=== PATIENT | female | born 2000 | race Caucasian/White ===

== ENCOUNTER 2020-05-18 16:46 | Emergency (ER) | payer OTHER ==
[~2020-05-18] VITALS: Ht 175 cm; Wt 113.0 kg
[2020-05-18] MEDS ORDERED: NF-VYVAN20 (17:17)
[2020-05-18] MEDS ORDERED: FLUO40CA (17:17)
--- NOTE | 2020-05-18 18:23 | Diagnostic Imaging Report ---
EXAMINATION: Chest 1 view HISTORY: cough COMPARISON: None available. FINDINGS: Heart size and pulmonary vasculature are normal. The lungs are clear without consolidation, pleural effusion, or pneumothorax. The osseous structures are intact. IMPRESSION: 1. No acute radiographic abnormality in the chest. Dictated by: Dictated on workstation # [id number]
--- NOTE | 2020-05-18 18:46 | ED Cough/URI ---
General Chief Complaint: Cough/Cold/Flu Symptoms Stated Complaint: COUGH;CHEST TIGHTNESS;FEVER;NASAL CONGESTION Nursing Triage Note: pt presents to ed with complaints of cough, fever, chest tightness, and nasal congestion since yesterday afternoon. no known covid exposure. Sepsis Screen: Possible Sepsis Risk Source: patient Exam Limitations: no limitations History of Present Illness Date Seen by Provider: May 18, 2020 Time Seen by Provider: 17:20 Initial Comments 19-year-old female who presents to the emergency room with complaints of nasal congestion, runny nose, cough, fever, he feels like her lungs are tight. 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 She denies any known COVID exposure. Reports that her symptoms started yesterday. Denies any nausea or vomiting, diarrhea, or any other COVID symptoms. Timing/Duration: just prior to arrival Associated Symptoms: cough, fever/chills, nasal congestion, nasal drainage Allergies and Home Medications Allergies Coded Allergies: Sulfa (Sulfonamide Antibiotics) (Verified Allergy, Mild, Rash, 05/18/20) Home Medications Albuterol Sulfate 1 Puff Puff, 2 PUFF IH Q4H 1 PUFF = 90 MCG Prescribed by: PONCE FUENTES on 05/18/201855 Azithromycin 250 Mg Tablet, 250 MG PO UD TAKE 2 TABLETS ON DAY ONE THEN TAKE 1 TABLET DAILY FOR FOUR MORE DAYS Prescribed by: PONCE FUENTES on 05/18/201855 Prednisone 20 Mg Tab, 40 MG PO DAILY Prescribed by: PONCE FUENTES on 05/18/201855 Patient Home Medication List Home Medication List Reviewed: Yes Review of Systems Review of Systems Constitutional: see HPI, chills, fever EENTM: see HPI, nose congestion Respiratory: see HPI, cough All Other Systems Reviewed Negative Unless Noted: Yes Past Celeydx-Tlsutb-Wkvfjd Hx Past Med/Social Hx: Reviewed Nursing Past Med/Soc Hx Patient Social History Alcohol Use: Denies Use Recreational Drug Use: No Smoking Status: Never a Smoker Recent Foreign Travel: No Contact w/Someone Who Travel: No Recent Infectious Disease Expo: No Recent Hopitalizations: No Physical Abuse: No Sexual Abuse: No Mistreated: No Fear: No Seasonal Allergies Seasonal Allergies: No Past Medical History Surgeries: Yes Tonsillectomy Respiratory: No Cardiac: No Neurological: No 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 oz. kg; 36.00 BMI Method: General Appearance: WD/WN, no apparent distress Eyes: Bilateral Eye Normal Inspection, Bilateral Eye PERRL, Bilateral Eye EOMI HEENT: PERRL/EOMI, normal ENT inspection, TMs normal, pharynx normal Respiratory: chest non-tender, lungs clear, normal breath sounds, no respiratory distress, no accessory muscle use Cardiovascular: normal peripheral pulses, regular rate, rhythm, no edema, no gallop, no JVD, no murmur Gastrointestinal: normal bowel sounds, non tender, soft, no organomegaly, no pulsatile mass Extremities: normal capillary refill Neurologic/Psychiatric: alert, normal mood/affect, oriented x 3 Skin: normal color, warm/dry Progress/Results/Core Measures Suspected Sepsis Recent Fever Within 48 Hours: Yes Infection Criteria Present: Suspected New Infection New/Unexplained Altered Menta: No Sepsis Screen: Possible Sepsis Risk SIRS Temperature: Pulse: 121 Respiratory Rate: 18 Blood Pressure 113 /78 Mean: 90 Results/Orders Lab Results Laboratory Tests Test 05/18/20 17:25 Range/Units Coronavirus 2018 (PAULA) Negative Negative Micro Results Microbiology 05/18/20 Influenza Types A,B Antigen (JULES) - Final, Complete My Orders Orders - PONCE FUENTES Chest 1 View, Ap/Pa Only (05/18/20 17:25) Influenza A And B Antigens (05/18/20 17:25) Coronavirus Sars-Cov-2 So 2018 (05/18/20 17:25) Covid 19 Inhouse Test (05/18/20 17:25) Vital Signs/I&O 05/18/20 05/18/20 16:58 19:50 Temp 38.3 36.9 Pulse 121 91 Resp 18 18 B/P (MAP) 113/78 (90) 111/76 (90) Pulse Ox 96 97 O2 Delivery Room Air Capillary Refill : Less Than 3 Seconds Blood Pressure Mean: 90 Progress Note : Time: 18:43 Progress Note I have seen and evaluated the patient. I've informed her of her laboratory and imaging studies. She agrees with plan of care, plans for discharge, return precautions were given. Diagnostic Imaging Diagonstic Imaging: Xray Comments [facility], [place] NAME: JACQUES MORRISSEY [facility] REC#: [id number] PT STATUS: REG ER : 2000 PHYSICIAN: PONCE FUENTES ADMIT DATE: 05/18/20/ER Signed Date of Exam:05/18/20 CHEST 1 VIEW, AP/PA ONLY EXAMINATION: Chest 1 view HISTORY: cough COMPARISON: None available. FINDINGS: Heart size and pulmonary vasculature are normal. The lungs are clear without consolidation, pleural effusion, or pneumothorax. The osseous structures are intact. IMPRESSION: 1. No acute radiographic abnormality in the chest. Dictated by: Dictated on workstation # [id number] Dict: 05/18/201821 Trans: 05/18/201821 [facility] [id number] Interpreted by: BARTOLOME TALAMANTES DO Electronically signed by: BARTOLOME TALAMANTES DO 05/18/201821 Reviewed: Reviewed by Me Departure Impression Primary Impression: Upper respiratory infection Additional Impressions: Bronchitis COVID-19 Disposition: 01 HOME, SELF-CARE Condition: Stable/Unchanged Departure-Patient Inst. Decision time for Depature: 18:43 Patient Instructions: Acute Bronchitis, Adult (DC), Cough, Adult (DC) Add. Discharge Instructions: Take medication as directed. Follow-up with your primary care provider within 1 week for recheck isolate until further instructions by the hospital or Critical access hospital. Tylenol for pain and fever. Return back to the emergency room for worsening symptoms or concerns as needed. All discharge instructions reviewed with patient and/or family. Voiced und erstanding. Scripts Albuterol Sulfate (PROAIR HFA) 1 Puff Puff 2 PUFF IH Q4H, #1 INHALER 1 PUFF = 90 MCG Prov: PONCE FUETNES 05/18/20 Azithromycin (Azithromycin) 250 Mg Tablet 250 MG PO UD, #6 TAB TAKE 2 TABLETS ON DAY ONE THEN TAKE 1 TABLET DAILY FOR FOUR MORE DAYS Prov: PONCE FUENTES 05/18/20 Prednisone (Prednisone) 20 Mg Tab 40 MG PO DAILY for 5 Days, #10 TAB 0 Refills Prov: PONCE FUENTES 05/18/20 PONCE FUENTES May 18, 2020 18:46
[2020-05-18] MEDS ORDERED: RT-ALBUINH IH (18:56)
[2020-05-18] MEDS ORDERED: PRD20T PO (18:56)
[2020-05-18] MEDS ORDERED: AZIT250T12 PO (18:56)
[2020-05-18 19:50] VITALS: BP 111/76
== END 2020-05-18 19:51 | disposition home or self-care (01) ==
LOC: ER 16:48
DX: J06.9 Acute upper respiratory infection, unspecified (principal); J40 Bronchitis, not specified as acute or chronic; Z20.828 Contact with and (suspected) exposure to other viral communicable diseases; Z79.52 Long term (current) use of systemic steroids; Z88.2 Allergy status to sulfonamides
CPT/HCPCS: 71045; 87804; 99283; U0002; 87635

== ENCOUNTER 2021-02-11 14:23 | Emergency (ER) | payer OTHER ==
[~2021-02-11] VITALS: Ht 172 cm; Wt 117.0 kg
[~2021-02-11 14:23] MED LIST: AZIT250T12 PO; FLUO40CA; NF-VYVAN20; PRD20T PO; RT-ALBUINH IH
[2021-02-11] MEDS ORDERED: ONDANSETRON 4 MG/2 ML (SDV) Z0FRAN IVP ONE (14:30)
[2021-02-11] MEDS ORDERED: NS IV 1000 ML 1,000 ML IV SCH (15:00)
[2021-02-11] MEDS ORDERED: LORazepam INJ 2 MG/ML (ATIVAN) VIAL IVP PRN (15:00)
[2021-02-11] MEDS ORDERED: KETOROLAC 30 MG/ML VIAL IVP ONE (15:00)
--- NOTE | 2021-02-11 15:00 | ED Abdominal Pain ---
General Stated Complaint: N/V/ABD PAIN Source of Information: Patient Exam Limitations: No Limitations History of Present Illness Date Seen by Provider: Feb 11, 2021 Time Seen by Provider: 14:56 Initial Comments to ER with epigastric abdominal pain nausea vomiting onset last night. She thought she might have some constipation though she has no history of this. As such she took some Dulcolax without result. She is unable to keep food or water down. No fevers or chills. No urinary symptoms. She does smoke marijuana daily. Has never had these symptoms before. Timing/Duration: 1-2 Days Severity/Quality: Moderate, Severe Location: Epigastric Radiation: No Radiation Activities at Onset: None Allergies and Home Medications Allergies Coded Allergies: Sulfa (Sulfonamide Antibiotics) (Verified Allergy, Mild, Rash, 05/18/20) Home Medications Albuterol Sulfate 1 Puff Puff, 2 PUFF IH Q4H 1 PUFF = 90 MCG Prescribed by: PONCE FUENTES on 05/18/201855 Azithromycin 250 Mg Tablet, 250 MG PO UD TAKE 2 TABLETS ON DAY ONE THEN TAKE 1 TABLET DAILY FOR FOUR MORE DAYS Prescribed by: PONCE FUENTES on 05/18/201855 Ondansetron 8 Mg Tab.rapdis, 8 MG PO Q6H PRN for NAUSEA-1ST LINE Prescribed by: JRAETH KHAN on 02/11/211640 Oxycodone HCl/Acetaminophen 1 Each Tablet, 1 EACH PO Q4H PRN for PAIN-SEVERE Prescribed by: JARETH KHAN on 02/11/211640 Prednisone 20 Mg Tab, 40 MG PO DAILY Prescribed by: PONCE FUENTES on 05/18/201855 Patient Home Medication List Home Medication List Reviewed: Yes Review of Systems Review of Systems Constitutional: see HPI EENTM: No Symptoms Reported Respiratory: No Symptoms Reported Cardiovascular: No Symptoms Reported Gastrointestinal: See HPI, Abdominal Pain Genitourinary: No Symptoms Reported Musculoskeletal: no symptoms reported Skin: no symptoms reported Psychiatric/Neurological: No Symptoms Reported Endocrine: No Symptoms Reported Hematologic/Lymphatic: No Symptoms Reported Past Ewbxjym-Ahupdd-Xcbsvh Hx Seasonal Allergies Seasonal Allergies: No Past Medical History Surgeries: Yes Tonsillectomy Respiratory: No Cardiac: No Neurological: No [employer] History: IUD Genitourinary: No Gastrointestinal: No Musculoskeletal: No HEENT: No Cancer: No Psychosocial: Yes Anxiety, Depression Integumentary: No Blood Disorders: No Adverse Reaction/Blood Tranf: No Physical Exam Vital Signs Vital Signs - First Documented 02/11/21 14:51 Temp 35.7 Pulse 90 Resp 22 B/P (MAP) 125/107 (113) Capillary Refill : Height/Weight/BMI Height: '" Weight: lbs. oz. kg; 36.00 BMI Method: General Appearance: WD/WN, mild distress (tearful, anxious) Neck: non-tender, full range of motion Respiratory: no respiratory distress, no accessory muscle use Gastrointestinal: normal bowel sounds, non tender, soft Neurologic/Psychiatric: alert, normal mood/affect, oriented x 3 Skin: normal color, warm/dry Progress/Results/Core Measures Results/Orders Lab Results Laboratory Tests Test 02/11/21 14:57 02/11/21 16:39 Range/Units White Blood Count 13.4 H 4.3-11.0 10^3/uL Red Blood Count 5.58 H 3.80-5.11 10^6/uL Hemoglobin 15.1 11.5-16.0 g/dL Hematocrit 46 35-52 % Mean Corpuscular Volume 83 80-99 fL Mean Corpuscular Hemoglobin 27 25-34 pg Mean Corpuscular Hemoglobin Concent 33 32-36 g/dL Red Cell Distribution Width 12.5 10.0-14.5 % Platelet Count 294 130-400 10^3/uL Mean Platelet Volume 11.6 9.0-12.2 fL Immature Granulocyte % (Auto) 0 % Neutrophils (%) (Auto) 82 H 42-75 % Lymphocytes (%) (Auto) 13 12-44 % Monocytes (%) (Auto) 4 0-12 % Eosinophils (%) (Auto) 0 0-10 % Basophils (%) (Auto) 0 0-10 % Neutrophils # (Auto) 11.0 H 1.8-7.8 10^3/uL Lymphocytes # (Auto) 1.8 1.0-4.0 10^3/uL Monocytes # (Auto) 0.5 0.0-1.0 10^3/uL Eosinophils # (Auto) 0.1 0.0-0.3 10^3/uL Basophils # (Auto) 0.1 0.0-0.1 10^3/uL Immature Granulocyte # (Auto) 0.1 0.0-0.1 10^3/uL Sodium Level 143 135-145 MMOL/L Potassium Level 3.8 3.6-5.0 MMOL/L Chloride Level 107 98-107 MMOL/L Carbon Dioxide Level 23 21-32 MMOL/L Anion Gap 13 5-14 MMOL/L Blood Urea Nitrogen 10 7-18 MG/DL Creatinine 0.80 0.60-1.30 MG/DL Estimat Glomerular Filtration Rate > 60 BUN/Creatinine Ratio 13 Glucose Level 110 H 70-105 MG/DL Calcium Level 9.8 8.5-10.1 MG/DL Corrected Calcium 8.5-10.1 MG/DL Total Bilirubin 0.5 0.1-1.0 MG/DL Aspartate Amino Transf (AST/SGOT) 14 5-34 U/L Alanine Aminotransferase (ALT/SGPT) 14 0-55 U/L Alkaline Phosphatase 76 40-136 U/L C-Reactive Protein High Sensitivity 0.88 H 0.00-0.50 MG/DL Total Protein 7.6 6.4-8.2 GM/DL Albumin 4.6 H 3.2-4.5 GM/DL Lipase 11 8-78 U/L Serum Test, Qualitative NEGATIVE NEGATIVE Urine Color YELLOW Urine Clarity SL CLOUDY Urine pH 8.5 5-9 Urine Specific Alexander 1.010 L 1.016-1.022 Urine Protein TRACE H NEGATIVE Urine Glucose (UA) NEGATIVE NEGATIVE Urine Ketones TRACE H NEGATIVE Urine Nitrite NEGATIVE NEGATIVE Urine Bilirubin NEGATIVE NEGATIVE Urine Urobilinogen 0.2 < = 1.0 MG/DL Urine Leukocyte Esterase NEGATIVE NEGATIVE Urine RBC (Auto) NEGATIVE NEGATIVE Urine RBC NONE /HPF Urine WBC RARE /HPF Urine Squamous Epithelial Cells 5-10 /HPF Urine Crystals NONE /LPF Urine Bacteria MODERATE H /HPF Urine Casts NONE /LPF Urine Mucus NEGATIVE /LPF Urine Culture Indicated NO Urine Opiates Screen NEGATIVE NEGATIVE Urine Oxycodone Screen NEGATIVE NEGATIVE Urine Methadone Screen NEGATIVE NEGATIVE Urine Propoxyphene Screen NEGATIVE NEGATIVE Urine Barbiturates Screen NEGATIVE NEGATIVE Ur Tricyclic Antidepressants Screen NEGATIVE NEGATIVE Urine Phencyclidine Screen NEGATIVE NEGATIVE Urine Amphetamines Screen NEGATIVE NEGATIVE Urine Methamphetamines Screen NEGATIVE NEGATIVE Urine Benzodiazepines Screen POSITIVE H NEGATIVE Urine Cocaine Screen NEGATIVE NEGATIVE Urine Cannabinoids Screen POSITIVE H NEGATIVE My Orders Orders - JARETH KHAN APRN Ns Iv 1000 Ml (Sodium Chloride 0.9%) (02/11/21 15:00) Ketorolac Injection (Toradol Injection) (02/11/21 15:00) Lorazepam Injection (Ativan Injection) (02/11/21 15:00) Drug Screen Stat (Urine) (02/11/21 15:45) Ct Abdomen/Pelvis W (02/11/21 15:46) Iohexol Injection (Omnipaque 350 Mg/Ml 1 (02/11/21 16:00) Received Contrast (Hold Metformin- Contr (02/11/21 16:00) Ns (Ivpb) (Sodium Chloride 0.9% Ivpb Bag (02/11/21 16:00) Fentanyl Inj (Sublimaze Injection) (02/11/21 16:45) Medications Given in ED Current Medications Medications Dose Ordered Sig/Baldev Route Start Time Stop Time Status Last Admin Dose Admin Fentanyl Citrate 50 mcg ONCE ONCE IVP 02/11/21 16:45 02/11/21 16:46 DC 02/11/21 16:49 50 MCG Iohexol 100 ml ONCE ONCE IV 02/11/21 16:00 02/11/21 16:01 DC 02/11/21 16:26 100 ML Ketorolac Tromethamine 15 mg ONCE ONCE IVP 02/11/21 15:00 02/11/21 15:01 DC 02/11/21 15:12 15 MG Lorazepam 0.5 mg ONCE PRN IVP 02/11/21 15:00 02/11/21 15:08 0.5 MG Ondansetron HCl 8 mg ONCE ONCE IVP 02/11/21 14:30 02/11/21 14:32 DC 02/11/21 15:12 8 MG Sodium Chloride 100 ml ONCE ONCE IV 02/11/21 16:00 02/11/21 16:01 DC 02/11/21 16:26 80 ML Vital Signs/I&O 02/11/21 14:51 Temp 35.7 Pulse 90 Resp 22 B/P (MAP) 125/107 (113) Diagnostic Imaging Diagonstic Imaging: CT Comments NAME: JACQUES MORRISSEY [facility] REC#: [id number] PT STATUS: REG ER : 2000 PHYSICIAN: JARETH KHAN APRN ADMIT DATE: 02/11/21/ER Signed Date of Exam:02/11/21 CT ABDOMEN/PELVIS W PROCEDURE: CT abdomen and pelvis with contrast. TECHNIQUE: Multiple contiguous axial images were obtained through the abdomen and pelvis after administration of intravenous contrast. Auto Exposure Controls were utilized during the CT exam to meet ALARA standards for radiation dose reduction. All CT scans use one or more of the following dose optimizing techniques: automated exposure control, MA and/or KvP adjustment based on patient size and exam type or iterative reconstruction. INDICATION: Upper abdominal pain. COMPARISON: There is no prior study available for comparison. FINDINGS: There is a small gallstone within the gallbladder but there is no evidence for an acute cholecystitis. However, if further evaluation of the gallbladder is desired, then ultrasound would be recommended. The liver, spleen, pancreas, adrenals, kidneys, aorta and inferior vena cava and portal vein are unremarkable for an acute abnormality. The stomach is partially filled with fluid and consequently difficult to assess. The appendix is not well-visualized but there are no indirect signs of acute appendicitis. There is no pelvic mass or free fluid collection noted. The uterus is anteverted and not enlarged. There is an IUD in place within the endometrium of the uterus in the body/fundus of the uterus. The urinary bladder is grossly unremarkable. The bone windows show no sign of a fracture or for destructive lesion. The lung bases are clear. IMPRESSION: 1. There is a small gallstone within the gallbladder but there is no evidence for acute cholecystitis. Recommendations as above. 2. There is no acute abnormality of the abdomen or pelvis noted otherwise. Dictated by: Dictated on workstation # [id number] Dict: 02/11/21 1628 Trans: 02/11/21 1636 [facility] [phone] Interpreted by: JALEESA FELDMAN MD Electronically signed by: JALEESA FELDMAN MD 02/11/21 1636 Departure Communication (Admissions) 1 at this time she is pain-free and nausea free. She is scheduled to have a gastric sleeve procedure done by Dr. Mathews on the of this month. She inquires about having the gallbladder taken out at the same time. I discussed with her that she should ask Dr. Mathews about this. 755- Impression Primary Impression: Cholelithiasis Disposition: 01 HOME, SELF-CARE Condition: Improved Departure-Patient Inst. Decision time for Depature: 16:38 Referrals: NO,LOCAL PHYSICIAN (PCP) Primary Care Physician MANUEL SCHMIDT BRETT D DO KIDO,TAKAAKI MD Patient Instructions: Gallbladder Diet Add. Discharge Instructions: . Low-fat low dairy product bland diet. Call a surgeon of your choosing on Saturday to make an appointment to be seen to schedule the gallbladder to be removed as it is likely the source of your problems. Take nausea medication and pain medication as directed in the meantime. Scripts Oxycodone HCl/Acetaminophen (Oxycodone-Acetaminophen 5-325) 1 Each Tablet 1 EACH PO Q4H PRN for PAIN-SEVERE MDD 6, #14 TAB Prov: JARETH KHAN APRN 02/11/21 Ondansetron (Ondansetron Odt) 8 Mg Tab.rapdis 8 MG PO Q6H PRN for NAUSEA-1ST LINE, #14 TAB Prov: JARETH KHAN APRN 02/11/21 Copy Copies To 1: JAIMIE MATHEWS MD, PETER J APRN Feb 11, 2021 15:00
[2021-02-11 15:12] LABS: BASOPHILS # (AUTO) 0.1 10^3/uL (0.0-0.1); BASOPHILS % (AUTO) 0 % (0-10); EOSINOPHILS # (AUTO) 0.1 10^3/uL (0.0-0.3); EOSINOPHILS % (AUTO) 0 % (0-10); HEMATOCRIT 46 % (35-52); HEMOGLOBIN 15.1 g/dL (11.5-16.0); LYMPHOCYTES # (AUTO) 1.8 10^3/uL (1.0-4.0); LYMPHOCYTES % (AUTO) 13 % (12-44); MEAN CORPUSCULAR HEMOGLOBIN 27 pg (25-34); MEAN CORPUSCULAR HGB CONC 33 g/dL (32-36); MEAN CORPUSCULAR VOLUME 83 fL (80-99); MEAN PLATELET VOLUME 11.6 fL (9.0-12.2); MONOCYTES # (AUTO) 0.5 10^3/uL (0.0-1.0); MONOCYTES % (AUTO) 4 % (0-12); NEUTROPHILS % (AUTO) 82 % (42-75); PLATELET COUNT 294 10^3/uL (130-400); WHITE BLOOD COUNT 13.4 10^3/uL (4.3-11.0)
[2021-02-11 15:22] LABS: ALBUMIN 4.6 GM/DL (3.2-4.5)
[2021-02-11 15:23] LABS: CHLORIDE 107 MMOL/L (98-107); POTASSIUM 3.8 MMOL/L (3.6-5.0); SODIUM 143 MMOL/L (135-145)
[2021-02-11 15:24] LABS: CALCIUM 9.8 MG/DL (8.5-10.1)
[2021-02-11 15:25] LABS: GLUCOSE 110 MG/DL (70-105); TOTAL PROTEIN 7.6 GM/DL (6.4-8.2)
[2021-02-11 15:26] LABS: CARBON DIOXIDE 23 MMOL/L (21-32)
[2021-02-11 15:27] LABS: BILIRUBIN,TOTAL 0.5 MG/DL (0.1-1.0)
[2021-02-11 15:28] LABS: ALKALINE PHOSPHATASE 76 U/L (40-136)
[2021-02-11 15:29] LABS: GFR ESTIMATED > 60
[2021-02-11 15:30] LABS: BUN/CREATININE RATIO 13
[2021-02-11 15:32] LABS: ALANINE AMINOTRANSFERASE 14 U/L (0-55); LIPASE 11 U/L (8-78)
[2021-02-11] MEDS ORDERED: IOHEXOL 350 MG/ML 100 ML (OMNIPAQUE 350) VIAL IV ONE (16:00)
[2021-02-11] MEDS ORDERED: HOLD METFORMIN - RECEIVED CONTRAST 20 ML VIAL IV SCH (16:00)
[2021-02-11] MEDS ORDERED: NS 100 ML (IVPB) BAG IV ONE (16:00)
--- NOTE | 2021-02-11 16:36 | Diagnostic Imaging Report ---
PROCEDURE: CT abdomen and pelvis with contrast. TECHNIQUE: Multiple contiguous axial images were obtained through the abdomen and pelvis after administration of intravenous contrast. Auto Exposure Controls were utilized during the CT exam to meet ALARA standards for radiation dose reduction. All CT scans use one or more of the following dose optimizing techniques: automated exposure control, MA and/or KvP adjustment based on patient size and exam type or iterative reconstruction. INDICATION: Upper abdominal pain. COMPARISON: There is no prior study available for comparison. FINDINGS: There is a small gallstone within the gallbladder but there is no evidence for an acute cholecystitis. However, if further evaluation of the gallbladder is desired, then ultrasound would be recommended. The liver, spleen, pancreas, adrenals, kidneys, aorta and inferior vena cava and portal vein are unremarkable for an acute abnormality. The stomach is partially filled with fluid and consequently difficult to assess. The appendix is not well-visualized but there are no indirect signs of acute appendicitis. There is no pelvic mass or free fluid collection noted. The uterus is anteverted and not enlarged. There is an IUD in place within the endometrium of the uterus in the body/fundus of the uterus. The urinary bladder is grossly unremarkable. The bone windows show no sign of a fracture or for destructive lesion. The lung bases are clear. IMPRESSION: 1. There is a small gallstone within the gallbladder but there is no evidence for acute cholecystitis. Recommendations as above. 2. There is no acute abnormality of the abdomen or pelvis noted otherwise. Dictated by: Dictated on workstation # [id number]
[2021-02-11] MEDS ORDERED: ONDA8TAB13 PO (16:41)
[2021-02-11] MEDS ORDERED: OXYC1TAB11 PO (16:41)
[2021-02-11] MEDS ORDERED: fentaNYL INJ 100 MCG/2 ML AMP IVP ONE (16:45)
[2021-02-11 17:19] LABS: BILIRUBIN,URINE NEGATIVE (NEGATIVE); CLARITY,URINE SL CLOUDY; COLOR,URINE YELLOW; GLUCOSE, URINE (UA) NEGATIVE (NEGATIVE); KETONES,URINE TRACE (NEGATIVE); LEUKOCYTE ESTERASE ,URINE NEGATIVE (NEGATIVE); NITRITE,URINE NEGATIVE (NEGATIVE); PH,URINE 8.5 (5-9); PROTEIN,URINE TRACE (NEGATIVE)
[2021-02-11 17:29] LABS: BENZODIAZEPINES SCREEN URINE POSITIVE (NEGATIVE)
[2021-02-11 17:33] LABS: AMPHETAMINE SCREEN, URINE NEGATIVE (NEGATIVE); BARBITURATE SCREEN URINE NEGATIVE (NEGATIVE); CANNABINOID SCREEN, URINE POSITIVE (NEGATIVE); COCAINE SCREEN URINE NEGATIVE (NEGATIVE); METHADONE STAT NEGATIVE (NEGATIVE); METHAMPHETAMINE SCREEN URINE S NEGATIVE (NEGATIVE); OPIATE SCREEN URINE NEGATIVE (NEGATIVE); OXYCODONE STAT NEGATIVE (NEGATIVE); PROPOXYPHENE STAT NEGATIVE (NEGATIVE); TRICYCLIC ANTIDEPRESSANTS SCRE NEGATIVE (NEGATIVE)
[2021-02-11 17:42] LABS: BACTERIA,URINE MODERATE /HPF; WBC,URINE RARE /HPF
[2021-02-11] MEDS ORDERED: RX-ONDANSETRON 4 MG ODT (ZOFRAN) PPK #4 PO STA (17:56)
[2021-02-11 18:05] VITALS: BP 96/75
[2021-02-12] MEDS ORDERED: PROM25TA14 PO (09:17)
[2021-02-12] MEDS ORDERED: OMEP20TA7 PO (09:17)
== END 2021-02-11 18:05 | disposition home or self-care (01) ==
LOC: EDUNIT# 14:23 → ER 14:24
DX: K80.20 Calculus of gallbladder without cholecystitis without obstruction (principal); Z79.52 Long term (current) use of systemic steroids
CPT/HCPCS: 36415; 74177; 80053; 80306; 81000; 83690; 84703; 85025; 86141

== ENCOUNTER 2021-02-12 07:10 | Emergency (ER) | payer OTHER ==
[~2021-02-12] VITALS: Ht 172 cm; Wt 117.0 kg
[~2021-02-12 07:10] MED LIST changes: +ONDA8TAB13 PO; +OXYC1TAB11 PO
[2021-02-12] MEDS ORDERED: ONDANSETRON 4 MG/2 ML (SDV) Z0FRAN IVP ONE (07:15)
[2021-02-12] MEDS ORDERED: LACTATED RINGERS 1,000 ML IV ONE ×2 (07:15→09:15)
[2021-02-12 07:32] LABS: BASOPHILS % (AUTO) 0 % (0-10); EOSINOPHILS % (AUTO) 0 % (0-10); HEMATOCRIT 44 % (35-52); HEMOGLOBIN 14.4 g/dL (11.5-16.0); LYMPHOCYTES # (AUTO) 2.2 10^3/uL (1.0-4.0); LYMPHOCYTES % (AUTO) 17 % (12-44); MEAN CORPUSCULAR HEMOGLOBIN 27 pg (25-34); MEAN CORPUSCULAR HGB CONC 33 g/dL (32-36); MEAN CORPUSCULAR VOLUME 84 fL (80-99); MEAN PLATELET VOLUME 11.6 fL (9.0-12.2); MONOCYTES # (AUTO) 0.5 10^3/uL (0.0-1.0); MONOCYTES % (AUTO) 4 % (0-12); NEUTROPHILS # (AUTO) 10.6 10^3/uL (1.8-7.8); NEUTROPHILS % (AUTO) 79 % (42-75); PLATELET COUNT 264 10^3/uL (130-400); WHITE BLOOD COUNT 13.4 10^3/uL (4.3-11.0)
[2021-02-12] MEDS ORDERED: FAMOTIDINE 20MG/2ML IV (PEPCID) IV STA (07:38)
[2021-02-12 07:43] LABS: ALBUMIN 4.6 GM/DL (3.2-4.5); CHLORIDE 109 MMOL/L (98-107); POTASSIUM 3.6 MMOL/L (3.6-5.0); SODIUM 146 MMOL/L (135-145)
[2021-02-12 07:44] LABS: CALCIUM 9.6 MG/DL (8.5-10.1)
[2021-02-12 07:45] LABS: GLUCOSE 114 MG/DL (70-105); TOTAL PROTEIN 7.5 GM/DL (6.4-8.2)
[2021-02-12] MEDS ORDERED: LIDOCAINE 2% VISCOUS 15 ML UDC PO ONE (07:45)
[2021-02-12] MEDS ORDERED: PROMETHAZINE INJ 25 MG/ML (PHENERGAN) AMP IVP ONE (07:45)
[2021-02-12] MEDS ORDERED: ANTACID SUSP 30 ML UDC (MYLANTA) PO ONE (07:45)
[2021-02-12 07:46] LABS: CARBON DIOXIDE 24 MMOL/L (21-32)
[2021-02-12 07:47] LABS: BILIRUBIN,TOTAL 0.5 MG/DL (0.1-1.0)
[2021-02-12 07:49] LABS: ALKALINE PHOSPHATASE 72 U/L (40-136); CREATININE SERUM 0.83 MG/DL (0.60-1.30); GFR ESTIMATED > 60
[2021-02-12 07:50] LABS: BUN/CREATININE RATIO 13
[2021-02-12 07:52] LABS: ALANINE AMINOTRANSFERASE 14 U/L (0-55)
[2021-02-12 07:53] LABS: LIPASE 17 U/L (8-78)
[2021-02-12 08:30] LABS: CLARITY,URINE CLEAR; COLOR,URINE YELLOW; GLUCOSE, URINE (UA) NEGATIVE (NEGATIVE); KETONES,URINE 3+ (NEGATIVE); LEUKOCYTE ESTERASE ,URINE NEGATIVE (NEGATIVE); NITRITE,URINE NEGATIVE (NEGATIVE); PH,URINE 8.5 (5-9); PROTEIN,URINE 1+ (NEGATIVE)
[2021-02-12 08:43] LABS: AMORPHOUS SEDIMENT,UR FEW AMOR PHOSPHATE /LPF; BACTERIA,URINE MODERATE /HPF; SQUAMOUS EPITHELIAL CELL,UR 25-50 /HPF
[2021-02-12] MEDS ORDERED: OMEP20TA7 PO (09:17)
[2021-02-12] MEDS ORDERED: PROM25TA14 PO (09:17)
--- NOTE | 2021-02-12 09:17 | ED Abdominal Pain ---
General Chief Complaint: Abdominal/GI Problems Stated Complaint: N/V/ABD PAIN Nursing Triage Note: PT REPORTS TO ED FOR ABDOMINAL PAIN X'S 2 DAYS. PT WAS SEEN HERE YESTERDAY FOR THE SAME THING AND WAS DX WITH A GALL STONE. PT REPORTS PAIN IS NOT IMPROVING AND SHE IS STILL VOMITING. PT AMB. TO ROOM 05 WITHOUT DIFFICULTY. Source of Information: Patient, Old Records Exam Limitations: No Limitations History of Present Illness Date Seen by Provider: Feb 12, 2021 Time Seen by Provider: 07:13 Initial Comments Patient was evaluated in this ER yesterday for abdominal discomfort and vomiting. CT scan was performed at that time revealing a nonobstructing gallstone with no cholecystitis. She was discharged home after treatment with Zofran. She took Zofran this morning but then vomited water shortly thereafter. She feels like she is getting dehydrated. Allergies and Home Medications Allergies Coded Allergies: Sulfa (Sulfonamide Antibiotics) (Verified Allergy, Mild, Rash, 05/18/20) Home Medications Albuterol Sulfate 1 Puff Puff, 2 PUFF IH Q4H 1 PUFF = 90 MCG Prescribed by: PONCE FUENTES on 05/18/201855 Azithromycin 250 Mg Tablet, 250 MG PO UD TAKE 2 TABLETS ON DAY ONE THEN TAKE 1 TABLET DAILY FOR FOUR MORE DAYS Prescribed by: PONCE FUENTES on 05/18/201855 Omeprazole 20 Mg Tablet.dr, 20 MG PO BID Prescribed by: STACIE CÁRDENAS on 02/12/21916 Ondansetron 8 Mg Tab.rapdis, 8 MG PO Q6H PRN for NAUSEA-1ST LINE Prescribed by: JARETH KHAN on 02/11/21 164 Oxycodone HCl/Acetaminophen 1 Each Tablet, 1 EACH PO Q4H PRN for PAIN-SEVERE Prescribed by: JARETH KHAN on 02/11/211640 Prednisone 20 Mg Tab, 40 MG PO DAILY Prescribed by: PONCE FUENTES on 05/18/201855 Promethazine HCl 25 Mg Tablet, 25 MG PO Q6H PRN for NAUSEA/VOMITING Prescribed by: STACIE CÁRDENAS on 02/12/21916 Patient Home Medication List Home Medication List Reviewed: Yes Review of Systems Review of Systems Constitutional: no symptoms reported EENTM: No Symptoms Reported Respiratory: No Symptoms Reported Cardiovascular: No Symptoms Reported Gastrointestinal: See HPI Genitourinary: No Symptoms Reported Musculoskeletal: no symptoms reported Skin: no symptoms reported Psychiatric/Neurological: No Symptoms Reported Endocrine: No Symptoms Reported Hematologic/Lymphatic: No Symptoms Reported Past Jexvowp-Ufwouu-Jfhrsr Hx Patient Social History Tobacco Use?: No Smoking Status: Never a Smoker Substance use?: Yes Substance type: Marijuana Additional substance use comme: LAST USED 02/11/21 AROUND 2200 Substance frequency: Couple times a week Alcohol Use?: No Pt feels they are or have been: No Immunizations Up To Date First/Initial COVID19 Vaccinat: 09/2020 Second COVID19 Vaccination Pedro Pablo: 09/2020 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: [employer] Seasonal Allergies Seasonal Allergies: No Past Medical History Surgeries: Yes Tonsillectomy Respiratory: No Cardiac: No Neurological: No : No 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 oz. kg; 39.00 BMI Method: General Appearance: WD/WN, no apparent distress HEENT: normal ENT inspection Neck: normal inspection Respiratory: lungs clear, normal breath sounds, no respiratory distress Cardiovascular: regular rate, rhythm, no edema, no murmur Gastrointestinal: normal bowel sounds, soft, tenderness (epigastric) Extremities: normal inspection, no pedal edema Neurologic/Psychiatric: signal maintenance technician II-XII nml as tested, no motor/sensory deficits, alert, normal mood/affect, oriented x 3 Skin: normal color, warm/dry Progress/Results/Core Measures Results/Orders Lab Results Laboratory Tests Test 02/12/21 07:28 02/12/21 08:22 Range/Units White Blood Count 13.4 H 4.3-11.0 10^3/uL Red Blood Count 5.26 H 3.80-5.11 10^6/uL Hemoglobin 14.4 11.5-16.0 g/dL Hematocrit 44 35-52 % Mean Corpuscular Volume 84 80-99 fL Mean Corpuscular Hemoglobin 27 25-34 pg Mean Corpuscular Hemoglobin Concent 33 32-36 g/dL Red Cell Distribution Width 12.5 10.0-14.5 % Platelet Count 264 130-400 10^3/uL Mean Platelet Volume 11.6 9.0-12.2 fL Immature Granulocyte % (Auto) 0 % Neutrophils (%) (Auto) 79 H 42-75 % Lymphocytes (%) (Auto) 17 12-44 % Monocytes (%) (Auto) 4 0-12 % Eosinophils (%) (Auto) 0 0-10 % Basophils (%) (Auto) 0 0-10 % Neutrophils # (Auto) 10.6 H 1.8-7.8 10^3/uL Lymphocytes # (Auto) 2.2 1.0-4.0 10^3/uL Monocytes # (Auto) 0.5 0.0-1.0 10^3/uL Eosinophils # (Auto) 0.0 0.0-0.3 10^3/uL Basophils # (Auto) 0.0 0.0-0.1 10^3/uL Immature Granulocyte # (Auto) 0.1 0.0-0.1 10^3/uL Sodium Level 146 H 135-145 MMOL/L Potassium Level 3.6 3.6-5.0 MMOL/L Chloride Level 109 H 98-107 MMOL/L Carbon Dioxide Level 24 21-32 MMOL/L Anion Gap 13 5-14 MMOL/L Blood Urea Nitrogen 11 7-18 MG/DL Creatinine 0.83 0.60-1.30 MG/DL Estimat Glomerular Filtration Rate > 60 BUN/Creatinine Ratio 13 Glucose Level 114 H 70-105 MG/DL Calcium Level 9.6 8.5-10.1 MG/DL Corrected Calcium 8.5-10.1 MG/DL Magnesium Level 2.0 1.6-2.4 MG/DL Total Bilirubin 0.5 0.1-1.0 MG/DL Aspartate Amino Transf (AST/SGOT) 13 5-34 U/L Alanine Aminotransferase (ALT/SGPT) 14 0-55 U/L Alkaline Phosphatase 72 40-136 U/L C-Reactive Protein High Sensitivity 0.71 H 0.00-0.50 MG/DL Total Protein 7.5 6.4-8.2 GM/DL Albumin 4.6 H 3.2-4.5 GM/DL Lipase 17 8-78 U/L Serum Test, Qualitative NEGATIVE NEGATIVE Urine Color YELLOW Urine Clarity CLEAR Urine pH 8.5 5-9 Urine Specific [place] 1.015 L 1.016-1.022 Urine Protein 1+ H NEGATIVE Urine Glucose (UA) NEGATIVE NEGATIVE Urine Ketones 3+ H NEGATIVE Urine Nitrite NEGATIVE NEGATIVE Urine Bilirubin 1+ H NEGATIVE Urine Urobilinogen 1.0 < = 1.0 MG/DL Urine Leukocyte Esterase NEGATIVE NEGATIVE Urine RBC (Auto) NEGATIVE NEGATIVE Urine RBC NONE /HPF Urine WBC NONE /HPF Urine Squamous Epithelial Cells 25-50 H /HPF Urine Crystals PRESENT H /LPF Urine Amorphous Sediment FEW NATHAN PHOSPHATE H /LPF Urine Bacteria MODERATE H /HPF Urine Casts NONE /LPF Urine Mucus MODERATE H /LPF Urine Culture Indicated YES My Orders Orders - STACIE REAVES MD Cbc With Automated Diff (02/12/21 07:13) Comprehensive Metabolic Panel (02/12/21 07:13) Hcg,Qualitative Serum (02/12/21 07:13) Lipase (02/12/21 07:13) Magnesium (02/12/21 07:13) Ua Culture If Indicated (02/12/21 07:13) Ed Iv/Invasive Line Start (02/12/21 07:13) Lactated Ringers (Lr 1000 Ml Iv Solution (02/12/21 07:15) Ondansetron Injection (Zofran Injectio (02/12/21 07:15) Hs C Reactive Protein (02/12/21 07:16) Promethazine Injection (Phenergan Injec (02/12/21 07:45) Lidocaine 2% Viscous 15 Ml (Xylocaine Vi (02/12/21 07:45) Antacid Suspension (Mylanta Suspension (02/12/21 07:45) Famotidine Injection (Pepcid Injection) (02/12/21 07:38) Urine Culture (02/12/21 08:22) Lactated Ringers (Lr 1000 Ml Iv Solution (02/12/21 09:15) Medications Given in ED Current Medications Medications Dose Ordered Sig/Baldev Route Start Time Stop Time Status Last Admin Dose Admin Lactated Ringer's 1,000 ml @ 0 mls/hr Q0M ONCE IV 02/12/21 09:15 7/4/21 09:16 DC 02/12/21 09:31 1,000 MLS/HR Vital Signs/I&O 02/12/21 02/12/21 07:20 11:38 Temp 37.4 37.0 Pulse 83 68 Resp 20 17 B/P (MAP) 147/93 (111) 117/60 Pulse Ox 95 100 O2 Delivery Room Air Room Air Blood Pressure Mean: 111 Progress Progress Note : Progress Note Patient received Phenergan and 2 L of IV fluid. Epigastric pain was treated with a GI cocktail and Pepcid. This did significantly improve her discomfort and tenderness. This has diagnostic value in that her pain is now considered to be more likely from gastritis than from gallbladder disease. She is being treated with PPI. See discharge instructions. Departure Impression Primary Impression: Epigastric pain Additional Impressions: Gastritis Qualified Codes: K29.00 - Acute gastritis without bleeding Nausea and vomiting Qualified Codes: R11.2 - Nausea with vomiting, unspecified Hypovolemia Disposition: HOME, SELF-CARE Condition: Improved Departure-Patient Inst. Decision time for Depature: 09:14 Referrals: IVETT SORIA MD (PCP) Primary Care Physician KAYLA YANES (Family) Primary Care Physician Patient Instructions: Gastritis, Severe Abdominal Pain, Adult (DC) Add. Discharge Instructions: Adhere to a noncarbonated clear liquid diet for the remainder of today. Then gradually advance your diet with small quantities of bland food as tolerated. For nausea use the Zofran as prescribed. If this does not resolve your nausea after 10 minutes, add Phenergan (promethazine) as prescribed. You may use Tylenol (acetaminophen) and Tums for pain. In the short-term do not use any ibuprofen or other NSAID medications. Add omeprazole twice daily for the next 2 weeks to help resolve gastritis. Expect your stomach pain to return after the GI cocktail you drink in the ER wears off. Pain should otherwise gradually improve over the next several days. Follow-up with your primary care provider soon as possible. Return to the ER if you have worsening symptoms. Call with questions or concerns. All discharge instructions reviewed with patient and/or family. Voiced understanding. Scripts Omeprazole (Omeprazole) 20 Mg Tablet. 20 MG PO BID, #30 TAB Prov: STACIE REAVES MD 02/12/21 Promethazine HCl (Promethazine Tablet) 25 Mg Tablet 25 MG PO Q6H PRN for NAUSEA/VOMITING, #10 TAB Prov: STACIE REAVES MD 02/12/21 Copy Copies To 1: IVETT SORIA MD Copies To 2: KAYLA YANES JOSHUA T MD Feb 12, 2021 09:17
[2021-02-12 11:08] LABS: BILIRUBIN,URINE 1+ (NEGATIVE)
[2021-02-12 11:38] VITALS: BP 117/60
== END 2021-02-12 11:38 | disposition home or self-care (01) ==
LOC: EDUNIT# 07:10 → ER 07:12
DX: K29.70 Gastritis, unspecified, without bleeding (principal); E86.1 Hypovolemia; Z79.52 Long term (current) use of systemic steroids
CPT/HCPCS: 36415; 80053; 81000; 83690; 83735; 84703; 85025; 86141; 87088

== ENCOUNTER 2021-03-02 10:12 | Outpatient (CLI) | payer OTHER ==
[~2021-03-02] VITALS: Ht 172.7 cm; Wt 117.6 kg
[~2021-03-02 10:12] MED LIST changes: +OMEP20TA7 PO; +PROM25TA14 PO
[2021-03-02] MEDS ORDERED: FLUO40CA12 PO (14:09)
== END 2021-03-02 14:15 | disposition home or self-care (01) ==
LOC: PREOP 10:12
PROVIDERS: ATTEND Surgery
DX: Z01.818 Encounter for other preprocedural examination (principal)

== ENCOUNTER 2021-03-09 13:39 | Observation (INO) | payer OTHER ==
--- NOTE | 2021-03-06 16:55 | HISTORY AND PHYSICAL ---
DATE OF SERVICE: PROCEDURE DATE: 03/09/2021. ATTENDING PRIMARY CARE PHYSICIAN: RALPH Jay. HISTORY OF PRESENT ILLNESS: The patient is a 20-year-old female with morbid obesity, who is interested in the laparoscopic gastric sleeve resection and meets the medical criteria for bariatric surgery. She reports that she has been overweight the majority of her life including even as a child. She reports that she has tried diets such as low carb, no sugar, keto diet and Atkins diet. She reports that she would lose some weight; however, would become stagnant with weight loss and then regained that weight back. She also reports that she has tried exercises in the past such as going to the gym and doing weight training as well as cardiovascular activities such as running as well as walking on a treadmill. She reports minimal success with exercise. She reports that she has also tried a Sylvia as well as Monae Stas workout videos and again would have little success with these exercises. She reports that she has not tried any medications for weight loss. Her medical comorbidities related to obesity include depression. PAST MEDICAL HISTORY: Depression. PAST SURGICAL HISTORY: Tonsillectomy, wisdom teeth removed. ALLERGIES: SULFA. MEDICATIONS: Prozac daily. SOCIAL HISTORY: Negative for smoking, negative for alcohol. FAMILY HISTORY: Father, diabetes, hypertension. Paternal grandmother, diabetes. REVIEW OF SYSTEMS: Well-nourished, obese female, in no acute distress. She is not experiencing any shortness of breath or difficulty breathing. No chest pain, palpitations or diaphoresis. No nausea, vomiting or abdominal pain. No diarrhea or constipation. No red blood per rectum. No dark tarry stools. No fever or chills. No recent inadvertent weight loss. All other review of systems negative. PHYSICAL EXAMINATION: VITAL SIGNS: Blood pressure is 142/78. Current weight is 259.2 pounds at 5 feet 8 inches with a body mass index of 39.4. CHEST: Clear. Good breath sounds bilaterally. HEART: Regular, no murmurs. EXTREMITIES: No lower extremity edema. Negative Homans sign. HEENT: No scleral icterus. NECK: No cervical lymphadenopathy. ABDOMEN: Soft, nontender, nondistended. SKIN: Warm, dry and pink. NEUROLOGIC: Awake, alert and oriented x3. ASSESSMENT AND PLAN: A 20-year-old female with morbid obesity and medical comorbidities related to obesity including depression. She is interested in the laparoscopic gastric sleeve resection and does meet the medical criteria for bariatric surgery. At this time, she has completed the necessary tests and evaluations including overnight oximetry study and upper GI contrast study as well as nutrition and psychology consult and received clearance from her primary care physician. The upper GI contrast study did not show any hiatal hernia and she was cleared by the clinical trials nurse as well as the psychologist and she did not have any significant desaturations in her oximetry study to indicate any sleep apnea. At this time, we will proceed with scheduling her for the laparoscopic gastric sleeve resection. The risks and benefits of the procedure as well as the procedure and home care instructions were explained to the patient. It was also discussed with the patient in depth about preoperative as well as postoperative diet and need for regular scheduled exercise. She verbalized understanding of instructions and agrees to proceed as planned. Job ID: [id number] DocumentID: [id number] Dictated Date: 03/06/2021 12:38:06 Cyber Security Manager Date: 03/06/2021 13:08:41 Dictated By: TOSHIA ALTAMIRANO APRN
[2021-03-09] VITALS (10 sets, daily range): BP systolic 111–135; BP diastolic 57–90
[~2021-03-09] VITALS: Ht 172.7 cm; Wt 114.2 kg
[2021-03-09] MEDS: LACTATED RINGERS 1,000 ML IV PRN ×2 (11:20→12:20)
[2021-03-09] MEDS: LACTATED RINGERS 1,000 ML IV SCH ×2 (11:20→12:20)
--- NOTE | 2021-03-09 11:25 | Progress Note-Pre Operative ---
Pre-Operative Progress Note H&P Reviewed The H&P was reviewed, patient examined and no changes noted. Date Seen by Provider: Mar 09, 2021 Time Seen by Provider: 11:15 Date H&P Reviewed: Mar 09, 2021 Time H&P Reviewed: 11:15 Pre-Operative Diagnosis: morbid obesity, depression JAIMIE PASTOR MD Mar 09, 2021 11:25
--- NOTE | 2021-03-09 11:31 | Discharge Inst-Surgical ---
D/C Lap Instructions-DARBY New, Converted, or Re-Newed RX: RX on Chart Follow Up Appt in 2 weeks Activity as tolerated No driving for 24 hours No [address] while on pain medications Incentive Spirometry use every 2 hours while awake phase 1 clear liquid diet for next 2 weeks. Symptoms to Report: Fever over 101 degree F, Nausea/Vomiting Infection Signs and Symptoms to report: Increased redness, Foul odor of wound, Increased drainage Bathing instructions: May shower Operative Area Clean/Dry; Keep incision clean/dry If any problems/questions: Contact your physician or go to Emergency Room JAIMIE PASTOR MD Mar 09, 2021 11:31
[~2021-03-09 13:39] MED LIST changes: +FLUO40CA12 PO; +HYDR-3817 PO; +LIDOCAINE PF 2% 5 ML (XYLOCAINE) VIAL ONE; +LIDOCAINE/EPI 1%-1:100,000 (XYLOCAINE) 20ML ONE; +LIDOCAINE/EPI 1%-1:200,000 (XYLOCAINE) 30 ML VIAL ONE; +MIDAZOLAM 2 MG/2 ML (VERSED) VIAL ONE; +NALOXONE 0.4 MG/ML 1 ML (NARCAN) VIAL IV PRN; +ONDANSETRON 4 MG/2 ML (SDV) Z0FRAN ONE; +ceFAZolin 2 GM IV Premixed 50 ML IV ONE; +diphenhydrAMINE 50 MG/ML INJ (BENADRYL) IV PRN; +diphenhydrAMINE 50 MG/ML INJ (BENADRYL) IVP PRN; +fentaNYL INJ 100 MCG/2 ML AMP ONE; +metroNIDAZOLE 500MG/100ML IVPB 100 ML IV SCH; +morphine PCA 100 MG/100 ML BAG IV PRN; +proPOfol 200 MG/20 ML (DIPRIVAN) VIAL IV ONE
[2021-03-09] MEDS ORDERED: RT-ALBUTEROL SULF 2.5 MG/3 ML PRE-MIX VIAL INH SCH (14:00)
[2021-03-09] MEDS ORDERED: ceFAZolin 2 GM IV Premixed 50 ML IV SCH (14:00)
[2021-03-09] MEDS ORDERED: ROCURONIUM 10 MG/ML 5 ML SYRINGE IV ONE (14:21)
[2021-03-09] MEDS ORDERED: SEVOFLURANE (ULTANE) 15 ML INHAL SOLN ONE ×2 (14:21→14:50)
[2021-03-09] MEDS ORDERED: GLYCOPYRROLATE 0.2 MG/ML (ROBINUL) 2 ML VIAL ONE (14:32)
[2021-03-09] MEDS ORDERED: NEOSTIGMINE 3 MG/3 ML VIAL ONE (14:32)
[2021-03-09] MEDS ORDERED: fentaNYL INJ 100 MCG/2 ML AMP ONE (14:44)
--- NOTE | 2021-03-09 14:49 | Progress Note-Post Operative ---
Post-Operative Progess Note Surgeon (s)/Nursing Staffing Coordinator (s) Surgeon JAIMIE PASTOR MD Nursing Staffing Coordinator: magno ya TITRATOR Pre-Operative Diagnosis morbid obesity, depression Post-Operative Diagnosis same Procedure & Operative Findings Date of Procedure 03/09/21 Procedure Performed/Findings laparoscopic gastric sleeve resection Anesthesia Type get Estimated Blood Loss Estimated blood loss (mL): minimal Specimens/Packing Specimens Removed stomach JAIMIE PASTOR MD Mar 09, 2021 14:49
[2021-03-09] MEDS ORDERED: morphine INJ 10 MG/ML 1ML (SYR OR VIAL) ONE (15:12)
[2021-03-09] MEDS ORDERED: MEPERIDINE (DEMEROL) INJ 50 MG/ML ONE (15:18)
[2021-03-09] MEDS ORDERED: ONDANSETRON 4 MG/2 ML (SDV) Z0FRAN IVP PRN (15:30)
[2021-03-09] MEDS ORDERED: morphine INJ 10 MG/ML 1ML (SYR OR VIAL) IVP ONE (15:30)
[2021-03-09] MEDS ORDERED: MEPERIDINE (DEMEROL) INJ 50 MG/ML IVP ONE (15:30)
[2021-03-09] MEDS ORDERED: HYDROmorphone 2 MG/ML VIAL (DILAUDID) IV ONE (15:30)
[2021-03-09] MEDS: METOCLOPRAMIDE INJ 10 MG/2 ML (REGLAN) IVP SCH ×2 (16:11→18:04)
[2021-03-09] MEDS: ONDANSETRON 4 MG/2 ML (SDV) Z0FRAN IVP SCH ×2 (16:12→18:04)
[2021-03-09] MEDS: metroNIDAZOLE 500MG/100ML IVPB 100 ML IV SCH (18:05)
--- NOTE | 2021-03-09 18:37 | OPERATIVE REPORT ---
DATE OF SERVICE: 03/09/2021 ATTENDING PRIMARY CARE PHYSICIAN: Dr. Yuriy Coker. PREOPERATIVE DIAGNOSES: 1. Morbid obesity. 2. Depression. POSTOPERATIVE DIAGNOSES: 1. Morbid obesity. 2. Depression. PROCEDURE: Laparoscopic gastric sleeve resection. SURGEON: Jaimie Mathews MD. ECONOMIC CONSULTANT: Vinicius Rojas APRN. ANESTHESIA: General endotracheal. ESTIMATED BLOOD LOSS: Minimal. FINDINGS: Normal appearing liver, gallbladder. No hiatal hernia. DISPOSITION: The patient tolerated the procedure well. INDICATIONS: The patient is a 20-year-old female who has had a longstanding history of being overweight and morbid obesity and is in our surgical weight loss program for the gastric sleeve resection and meets the medical criteria for bariatric surgery. She has been overweight the majority of her life including during her childhood. She has tried a number of diet and exercise attempts without any success. She has tried diets including low carbohydrate, no sugar, ketogenic diet as well as Benjamin diet and reports that she would lose some weight; however, her weight loss would become stagnant and would eventually gained the weight back. She has tried exercise regimens including resistance weight training as well as multiple cardiovascular machines including treadmill and running as well as elliptical with no success. She has also tried Sylvia classes with little success. Her medical comorbidity related to obesity includes depression. DESCRIPTION OF PROCEDURE: The patient was brought to the operating room, laid supine on the table. After adequate IV pain and sedative medications and general endotracheal intubation, the abdomen was prepped and draped in standard surgical fashion. A 0.5% Marcaine with epinephrine was used to anesthetize overlying skin in the left upper abdominal quadrant and a transverse skin incision made using a 15 blade. An 0 silk suture was applied to the medial aspect of incision for retraction and a Veress needle inserted with a low opening pressure of 0 mmHg. The abdomen was insufflated to 15 mmHg pressure. The Veress needle removed and a 5 mm XL trocar placed followed by a 5 mm 45-degree angle laparoscope visualizing the peritoneal cavity. A 4-quadrant abdominal exploration was then performed. There was mild hepatomegaly. The gallbladder appeared normal. No hiatal hernia was identified. Under direct visualization, we then proceeded to place a midabdominal left to midline 10 mm port after the skin and peritoneal lining were anesthetized using 0.5% Marcaine with epinephrine and a transverse skin incision made using a 15 blade. In a similar manner, a midabdominal right of midline 15 mm port was placed followed by a right upper abdominal quadrant 5 mm port. The epigastric region was then anesthetized and a transverse skin incision made using 11 blade. A tract was then created through the abdominal wall layers using a trocar to a 5 mm port. Through this opening, a medium sized Nathansen liver retractor was placed and the left lobe of the liver retracted anteriorly and superiorly. The patient was then placed in steep reverse Trendelenburg position and we then proceeded to measure 6 cm from the pylorus along the greater curvature and marked this area with a marking pen. The gastrocolic ligament next to the stomach was then opened using a Sonicision entering the lesser sac. We then proceeded with inferior dissection until we were approximately 2 cm below our marking using the Sonicision with visualization of good hemostasis. We then proceeded superiorly, taking down the short gastric vessels. The entire angle of His connective tissue fibers as well as the posterior stomach behind this was dissected until the left marylin of the diaphragm was identified. Good hemostasis was observed. A 34-Nigerien ViSiGi gastric tube was then placed under direct visualization and directed into the pylorus. We then proceeded with our gastric sleeve resection using the ViSiGi as our staple line guide. We first proceeded with MAYKEL 45 mm polyglycolic acid black load. We then proceeded with two 60 mm black loads followed by a 60 mm purple load leaving approximately 2 cm next to the gastroesophageal junction and completing our gastric sleeve resection. The staple line corners were then clipped with 5 mm clips and fibrin glue was placed onto the staple line and the omentum placed back onto the staple line. Before this, a leak test was performed and the ViSiGi was insufflated to 35 mmHg pressure with no leak identified. The ViSiGi was then removed as well as the liver retractor. The fascia and peritoneum to the 10 mm and 15 mm port site were then closed under direct visualization using a Junior-Randy device and 0 Vicryl suture. The abdomen was desufflated and remaining ports removed. All skin incisions were closed using 4-0 Monocryl running subcuticular sutures. Wounds were then cleaned and covered with Dermabond. The patient tolerated the procedure well. We will admit her 23 hours observation and proceed with DVT prophylaxis with early ambulation, calf SCDs as well as Lovenox injections. Tomorrow morning, we will start a phase 1 clear liquid diet and once she is tolerating at least 60 mL of clear liquids every 30 minutes, has adequate pain control with oral pain medication and is ambulating well, we will discharge her home. She was also instructed to follow up with a clear liquid diet for the next 2 weeks. Job ID: [id number] DocumentID: [id number] Dictated Date: 03/09/2021 14:58:48 Cone Examiner Date: 03/09/2021 18:37:19 Dictated By: JAIMIE MATHEWS MD MTDD
[2021-03-09] MEDS: ceFAZolin 2 GM IV Premixed 50 ML IV SCH (21:20)
[2021-03-09] MEDS: ENOXAPARIN 30 MG/0.3 ML (LOVENOX) SYR SC SCH (21:20)
[2021-03-09] MEDS: NS IV 1000 ML 1,000 ML IV SCH (23:31)
[2021-03-10] VITALS (7 sets, daily range): BP systolic 106–137; BP diastolic 63–78
[2021-03-10] MEDS: METOCLOPRAMIDE INJ 10 MG/2 ML (REGLAN) IVP SCH ×2 (00:36→05:54)
[2021-03-10] MEDS: ONDANSETRON 4 MG/2 ML (SDV) Z0FRAN IVP SCH ×2 (00:36→05:54)
[2021-03-10] MEDS: NS IV 1000 ML 1,000 ML IV SCH ×4 (01:44→22:50)
[2021-03-10] MEDS: metroNIDAZOLE 500MG/100ML IVPB 100 ML IV SCH ×2 (03:41→11:53)
[2021-03-10] MEDS: ceFAZolin 2 GM IV Premixed 50 ML IV SCH ×2 (05:53→14:54)
[2021-03-10 06:42] LABS: HEMATOCRIT 40 % (35-52); HEMOGLOBIN 12.9 g/dL (11.5-16.0); MEAN CORPUSCULAR HEMOGLOBIN 27 pg (25-34); MEAN CORPUSCULAR HGB CONC 32 g/dL (32-36); MEAN CORPUSCULAR VOLUME 85 fL (80-99); MEAN PLATELET VOLUME 13.4 fL (9.0-12.2); PLATELET COUNT 170 10^3/uL (130-400)
[2021-03-10] MEDS: PANTOPRAZOLE 40 MG (PROTONIX) TAB PO SCH (08:28)
[2021-03-10] MEDS: PANTOPRAZOLE 40 MG (PROTONIX) VIAL IV SCH (08:31)
[2021-03-10] MEDS: SENNA W/DOCUSATE (SENOKOT S) TABLET PO SCH (08:33)
[2021-03-10] MEDS: ONDANSETRON 4 MG/2 ML (SDV) Z0FRAN IV PRN ×2 (08:37→19:45)
--- NOTE | 2021-03-10 08:44 | Anesthesia-General Post-Op ---
General Patient Condition Mental Status/LOC: Same as Preop Cardiovascular: Satisfactory Nausea/Vomiting: Absent Respiratory: Satisfactory Pain: Controlled Complications: Absent Post Op Complications Complications None Follow Up Care/Instructions Patient Instructions None needed. Anesthesia/Patient Condition Patient Condition Patient is doing well, no complaints, stable vital signs, no apparent adverse anesthesia problems. No complications reported per nursing. AGNIESZKA JONES CRNA Mar 10, 2021 08:44
[2021-03-10] MEDS ORDERED: ONDANSETRON 4 MG/2 ML (SDV) Z0FRAN IVP PRN (11:30)
[2021-03-10] MEDS ORDERED: METOCLOPRAMIDE INJ 10 MG/2 ML (REGLAN) IVP PRN (11:30)
[2021-03-10] MEDS: ENOXAPARIN 30 MG/0.3 ML (LOVENOX) SYR SC SCH ×2 (11:54→22:23)
--- NOTE | 2021-03-10 14:21 | Progress Note ---
Subjective Date Seen by a Provider: Mar 10, 2021 Time Seen by a Provider: 14:00 Subjective/Events-last exam doing well. mild nausea. tolerating some clears however not to rate. ambulating well. pain controlled. no fever/chills. Objective Exam Vital Signs Date Time Temp Pulse Resp B/P (MAP) Pulse Ox O2 Delivery O2 Flow Rate FiO2 03/10/21 13:24 Room Air 03/10/21 12:16 36.4 93 18 124/63 (83) 96 Room Air 03/10/21 08:20 Room Air 03/10/21 08:19 37.0 89 18 129/78 (95) 96 Room Air 03/10/21 07:00 20 03/10/21 03:42 36.7 95 16 106/68 (81) 94 Room Air 03/10/21 00:39 36.6 92 18 108/63 (78) 97 Room Air 03/09/21 21:19 18 03/09/21 20:18 Room Air 03/09/21 19:50 36.3 92 20 133/75 (94) 96 Room Air 03/09/21 18:35 95 Room Air 03/09/21 17:58 18 03/09/21 16:30 36.2 79 18 115/75 (88) 95 Room Air 03/09/21 16:00 Room Air 03/09/21 16:00 36.4 20 122/67 (85) 94 Room Air 03/09/21 15:50 20 122/67 (85) 94 Room Air 03/09/21 15:45 Room Air 03/09/21 15:40 20 125/68 (87) 98 Room Air 03/09/21 15:30 OxyMask 3 03/09/21 15:30 20 128/67 (87) 99 OxyMask 3 03/09/21 15:20 20 135/90 (105) 99 OxyMask 3 03/09/21 15:15 OxyMask 4 03/09/21 15:10 20 117/74 (88) 100 OxyMask 6 03/09/21 14:59 OxyMask 6 03/09/21 14:59 36.4 20 119/57 (77) 100 OxyMask 6 I & O 03/10/21 07:00 Intake Total 1050 ml Output Total 950 ml Balance 100 ml Capillary Refill : Less Than 3 Seconds General Appearance: No Apparent Distress HEENT: PERRL/EOMI Neck: Full Range of Motion Respiratory: Chest Non Tender, Lungs Clear, Normal Breath Sounds Cardiovascular: Regular Rate, Rhythm Gastrointestinal: normal bowel sounds, soft, tenderness Extremity: Normal Capillary Refill Neurologic/Psychiatric: Alert, Oriented x3 Skin: Normal Color Lymphatic: No Adenopathy Results Lab Laboratory Tests 03/10/21 05:45: White Blood Count 14.0H, Red Blood Count 4.72, Hemoglobin 12.9, Hematocrit 40, Mean Corpuscular Volume 85, Mean Corpuscular Hemoglobin 27, Mean Corpuscular Hemoglobin Concent 32, Red Cell Distribution Width 12.4, Platelet Count 170, Mean Platelet Volume 13.4H Microbiology 03/09/21 MRSA Screen - Final, Complete MRSA not isolated Assessment/Plan Assessment/Plan Assess & Plan/Chief Complaint s/p lap gastric sleeve resection. switch to PO pain meds. increase ambulation. home when tolerating 60ml liquids per 30 min. JAIMIE PASTOR MD Mar 10, 2021 14:21
[2021-03-10] MEDS: METOCLOPRAMIDE INJ 10 MG/2 ML (REGLAN) IV PRN (14:54)
[2021-03-10] MEDS ORDERED: oxyCODONE 5 MG/5 ML ORAL SOLN (roxiCODONE) 5 ML UDC PO PRN (15:00)
[2021-03-10] MEDS ORDERED: APAP 325 MG/10.15 ML LIQ (TYLENOL) UDC PO PRN (15:00)
[2021-03-11] MEDS: METOCLOPRAMIDE INJ 10 MG/2 ML (REGLAN) IV PRN (00:37)
[2021-03-11 04:00] VITALS: BP 112/66
[2021-03-11] MEDS: NS IV 1000 ML 1,000 ML IV SCH ×2 (05:55→10:45)
[2021-03-11] MEDS: PANTOPRAZOLE 40 MG (PROTONIX) TAB PO SCH (06:27)
[2021-03-11] MEDS: PANTOPRAZOLE 40 MG (PROTONIX) VIAL IV SCH (06:36)
[2021-03-11 08:00] VITALS: BP 137/79
[2021-03-11] MEDS: ENOXAPARIN 30 MG/0.3 ML (LOVENOX) SYR SC SCH (08:43)
[2021-03-11] MEDS: SENNA W/DOCUSATE (SENOKOT S) TABLET PO SCH ×3 (08:43→08:51)
[2021-03-11] MEDS: ONDANSETRON 4 MG/2 ML (SDV) Z0FRAN IV PRN (10:38)
[2021-03-11 12:00] VITALS: BP 121/79
== END 2021-03-11 13:33 | disposition home or self-care (01) ==
LOC: SDC 13:39 → 4TH 16:00 → SDC 16:00 → 4TH 03-10 17:30 → SDC 03-10 19:29 → 4TH 03-10 19:29 → SDC 03-11 13:40
PROVIDERS: ADMIT Surgery; ATTEND Surgery
DX: E66.01 Morbid (severe) obesity due to excess calories (principal); F32.9 Major depressive disorder, single episode, unspecified; Z90.89 Acquired absence of other organs; Z83.3 Family history of diabetes mellitus; Z82.49 Family history of ischemic heart disease and other diseases of the circulatory system; Z68.38 Body mass index [BMI] 38.0-38.9, adult
CPT/HCPCS: 36415; 84703; 85027; 87081; 99211; G0378

== ENCOUNTER 2021-12-14 18:01 | Emergency (ER) | payer OTHER ==
[~2021-12-14] VITALS: Ht 175 cm; Wt 73.4 kg
[~2021-12-14 18:01] MED LIST changes: -LIDOCAINE PF 2% 5 ML (XYLOCAINE) VIAL ONE; -LIDOCAINE/EPI 1%-1:100,000 (XYLOCAINE) 20ML ONE; -LIDOCAINE/EPI 1%-1:200,000 (XYLOCAINE) 30 ML VIAL ONE; -MIDAZOLAM 2 MG/2 ML (VERSED) VIAL ONE; -NALOXONE 0.4 MG/ML 1 ML (NARCAN) VIAL IV PRN; +OMEP20TA56 PO; -OMEP20TA7 PO; -ONDANSETRON 4 MG/2 ML (SDV) Z0FRAN ONE; -ceFAZolin 2 GM IV Premixed 50 ML IV ONE; -diphenhydrAMINE 50 MG/ML INJ (BENADRYL) IV PRN; -diphenhydrAMINE 50 MG/ML INJ (BENADRYL) IVP PRN; -fentaNYL INJ 100 MCG/2 ML AMP ONE; -metroNIDAZOLE 500MG/100ML IVPB 100 ML IV SCH; -morphine PCA 100 MG/100 ML BAG IV PRN; -proPOfol 200 MG/20 ML (DIPRIVAN) VIAL IV ONE
--- NOTE | 2021-12-14 18:27 | ED GU-Female ---
General Chief Complaint: - Reproductive Stated Complaint: UNABLE TO URINATE Nursing Triage Note: PT TO ROOM 5. CO OF UNABLE TO URINATE SINCE YESTERDAY. N/V OVER THE WEEKEND, AND NOTICED CONCENTRATED URINE. Source: patient Exam Limitations: no limitations History of Present Illness Date Seen by Provider: December 14, 2021 Time Seen by Provider: 18:10 Initial Comments The patient presents to the ER by private conveyance from home with her si gnificant other and chief complaint that since yesterday she has not been able to urinate. She says she feels the urge to urinate and sometimes she feels like she cannot get all of her urine out. She is not having burning or discharge. She did have routine STD testing at her [facility] last week but has not received the results. She is in a monogamous relationship. She has a pertinent history of being on an IUD with no periods. She had a gastric sleeve bypass by Dr. PASTOR little less than a year ago. On Saturday she was having chills, cough nausea and vomiting but has gotten better since then. She is not having diarrhea or constipation. She has had no complications of her surgery thus far. Allergies and Home Medications Allergies Coded Allergies: Sulfa (Sulfonamide Antibiotics) (Verified Allergy, Mild, Rash, 05/18/20) Patient Home Medication List Home Medication List Reviewed: Yes Doxycycline Hyclate (Doxycycline Hyclate) 100 Mg Tablet, 100 MG PO BID Prescribed by: LOUISE ROBLES on 12/14/21 1847 Fluoxetine HCl (Prozac) 40 Mg Capsule, 40 MG PO DAILY, (Reported) Entered as Reported by: LIBERTY PARHAM on 03/02/21 1409 Hydrocodone/Acetaminophen (Hydrocodone-Acetamin 7.5-325) 1 Each Tablet, 1 EACH PO Q4H Prescribed by: JAIMIE PASTOR on 03/09/21 1130 Review of Systems Review of Systems Constitutional: see HPI; No chills, No diaphoresis; fever (4 days ago but not today) EENTM: see HPI; No ear pain, No eye pain Respiratory: cough; No phlegm, No short of breath Cardiovascular: No chest pain Gastrointestinal: No abdominal pain, No constipation, No diarrhea, No nausea Genitourinary: see HPI; denies discharge; dysuria, frequency Musculoskeletal: No back pain, No joint pain All Other Systemes Reviewed Negative Unless Noted: Yes Past Bapcbku-Uuchyt-Srhfgh Hx Patient Social History Tobacco Use?: No Use of E-Cig and/or Vaping dev: No Substance use?: Yes Substance type: Marijuana Substance frequency: Couple times a week Alcohol Use?: No Pt feels they are or have been: No Immunizations Up To Date Influenza Vaccine Up-to-Date: Yes; Up-to-Date First/Initial COVID19 Vaccinat: OCTOBER 2020 Second COVID19 Vaccination Pedro Pablo: [id number] COVID19 Vaccine Director Of Media: MODERNA Seasonal Allergies Seasonal Allergies: No Past Medical History Surgery/Hospitalization HX: GASTRIC SLEEVE, TONSIL ANEMIA AND DEPRESSION Surgeries: Yes (WISDOM TEETH) Adenoidectomy, Tonsillectomy Respiratory: No Currently Using CPAP: No Currently Using BIPAP: No Cardiac: No Neurological: No 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 oz. kg; 23.00 BMI Method: General Appearance: WD/WN, no apparent distress HEENT: PERRL/EOMI, normal ENT inspection, TMs normal, pharynx normal Neck: full range of motion, supple, normal inspection Cardiovascular: normal peripheral pulses, regular rate, rhythm Respiratory: no respiratory distress, no accessory muscle use Gastrointestinal: normal bowel sounds, soft, tenderness (Suprapubic region) Neurologic/Psychiatric: alert, normal mood/affect, oriented x 3 Skin: normal color, warm/dry Progress/Results/Core Measures Suspected Sepsis SIRS Temperature: Pulse: 85 Respiratory Rate: 16 Blood Pressure 112 /69 Mean: 83 Results/Orders Lab Results Laboratory Tests Test 12/14/21 18:57 Range/Units Urine Color YELLOW Urine Clarity SL CLOUDY Urine pH 6.5 5-9 Urine Specific [place] <=1.005 1.016-1.022 Urine Protein NEGATIVE NEGATIVE Urine Glucose (UA) NEGATIVE NEGATIVE Urine Ketones NEGATIVE NEGATIVE Urine Nitrite NEGATIVE NEGATIVE Urine Bilirubin NEGATIVE NEGATIVE Urine Urobilinogen 0.2 < = 1.0 MG/DL Urine Leukocyte Esterase NEGATIVE NEGATIVE Urine RBC (Auto) NEGATIVE NEGATIVE Urine RBC NONE /HPF Urine WBC NONE /HPF Urine Squamous Epithelial Cells NONE /HPF Urine Crystals NONE /LPF Urine Bacteria TRACE /HPF Urine Casts NONE /LPF Urine Mucus NEGATIVE /LPF Urine Culture Indicated NO Urine Test NEGATIVE NEGATIVE My Orders Orders - LOUISE ROBLES Bladder Scan (12/14/21 18:20) Azithromycin Tablet (Zithromax Tablet) (12/14/21 18:45) Ceftriaxone (Rocephin) (12/14/21 18:45) Lidocaine 1% Inj 20 Ml (Xylocaine 1% Inj (12/14/21 18:45) Medications Given in ED Current Medications Medications Dose Ordered Sig/Baldev Route Start Time Stop Time Status Last Admin Dose Admin Azithromycin 1,000 mg ONCE ONCE PO 12/14/21 18:45 12/14/21 18:46 DC 12/14/21 19:08 1,000 MG Ceftriaxone Sodium 1,000 mg ONCE ONCE IM 12/14/21 18:45 12/14/21 18:46 DC 12/14/21 19:09 1,000 MG Lidocaine HCl 2.1 ml ONCE ONCE INJ 12/14/21 18:45 12/14/21 18:46 DC 12/14/21 19:09 2.1 ML Vital Signs/I&O 12/14/21 18:08 Temp 36.2 Pulse 85 Resp 16 B/P (MAP) 112/69 (83) Capillary Refill : Less Than 3 Seconds Blood Pressure Mean: 83 Progress Note #1: Time: 18:26 Progress Note She has not expressed any desire for anything for pain. She appears comfortable and has normal vital signs. Concerned about urinary retention. Patient agrees with the plan to attempt to urinate and then do a postvoid residual using a bladder scanner. We will place a Phillips catheter to decompress the bladder if necessary. We will use a straight catheter if we just need a urine sample. Would probably start her on antibiotic coverage pending results of her STD testing from her [facility] physician. Progress Note #2: Time: 18:43 Progress Note Over 600 cc of urine were seen on bladder scan. We did discuss options for decompressing her bladder with a straight cath versus a Phillips catheter. After discussing the risks, benefits and alternatives the patient elected straight cath. We will give her follow-up with urology and IM Rocephin and a gram of azithromycin. We will put her out on a week of doxycycline. 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 Decision time for Depature: 19:18 Referrals: IVETT SORIA MD (PCP) Primary Care Physician KAYLA YANES (Family) Primary Care Physician UMU SOLIS MD Patient Instructions: Urinary Retention (DC) Add. Discharge Instructions: If you are again unable to urinate and having increasing discomfort then you need to return to the ER for help. Drink plenty of fluids. Doxycycline 1 capsule twice a day with food. Probiotics 1 capsule twice a day with food. Make a follow-up appointment in the next 1 to 2 weeks with urology for recheck. All discharge instructions reviewed with patient and/or family. Voiced understanding. Scripts Doxycycline Hyclate (Doxycycline Hyclate) 100 Mg Tablet 100 MG PO BID for 7 Days, #14 TAB 0 Refills Prov: LOUISE ROBLES 12/14/21 Work/School Note: Work Release Form Date Seen in the Emergency Department: December 14, 2021 Return to Work: December 15, 2021 Restrictions: No Restrictions Copy Copies To 1: UMU SOLIS MD, TITUS J December 14, 2021 18:27
[2021-12-14] MEDS ORDERED: LIDOCAINE 1% INJ 20 ML VIAL INJ ONE (18:45)
[2021-12-14] MEDS ORDERED: AZITHROMYCIN 250 MG TAB (ZITHROMAX) PO ONE (18:45)
[2021-12-14] MEDS ORDERED: cefTRIAXone 1,000 MG VIAL IM ONE (18:45)
[2021-12-14] MEDS ORDERED: DOXY100T2 PO (18:47)
[2021-12-14 19:06] LABS: BILIRUBIN,URINE NEGATIVE (NEGATIVE); CLARITY,URINE SL CLOUDY; COLOR,URINE YELLOW; GLUCOSE, URINE (UA) NEGATIVE (NEGATIVE); KETONES,URINE NEGATIVE (NEGATIVE); LEUKOCYTE ESTERASE ,URINE NEGATIVE (NEGATIVE); NITRITE,URINE NEGATIVE (NEGATIVE); PH,URINE 6.5 (5-9); PROTEIN,URINE NEGATIVE (NEGATIVE)
[2021-12-14 19:15] LABS: BACTERIA,URINE TRACE /HPF
[2021-12-14 19:32] VITALS: BP 114/69
== END 2021-12-14 19:32 | disposition home or self-care (01) ==
LOC: EDUNIT# 18:01 → ER 18:02
DX: N34.2 Other urethritis (principal); Z97.5 Presence of (intrauterine) contraceptive device; Z32.02 Encounter for pregnancy test, result negative
CPT/HCPCS: 81000; 84703; 99284